=== PATIENT | male | born 1955 | race Caucasian/White ===

== ENCOUNTER → 2017-03-04 | Outpatient (CLI) | payer BC ==
[~2017-03-04] MED LIST: ASPEC81 PO; EZET10TA41 PO; METO50TA16 PO; MULT-506 PO; PRLSR20 PO
--- NOTE | 2017-03-04 12:14 | DIAGNOSTIC IMAGING REPORT ---
CT SINUSES WITH BRAIN LAB CT DOSE: 297.29 mGycm CLINICAL HISTORY: Chronic sinusitis. TECHNIQUE: Axial images of the sinuses were obtained without IV contrast. Coronal reformats were viewed. COMPARISON STUDY: None. FINDINGS: Visualized portions of the intracranial contents are unremarkable on this unenhanced examination. Mastoid air cells are clear. There is no fluid within the middle ears and the ossicles are intact. There are postsurgical findings suggestive of partial ethmoidectomies. The ostiomeatal complexes are patent. There is moderate leftward deviation of the nasal septum. Note is made of a suspected mucous retention cyst within the right maxillary sinus. There is mild mucosal thickening of the ethmoid sinuses. There are postsurgical findings involving the anterior cheney of the frontal sinuses. The frontal sinuses are largely opacified and contains hyperdense expansile lesions which measure up to 1.8 cm. There is significant thinning of the posterior cheney of the bilateral frontal sinuses. No definite intracranial extension is identified although would be difficult to exclude on this examination. IMPRESSION: 1. Postsurgical findings involving the anterior cheney of the frontal sinuses. Largely opacified frontal sinuses which contain several expansile hyperdense lesions. While nonspecific, mucoceles are favored. Marked thinning of the posterior cheney of the frontal sinuses. No definite intracranial extension although this be difficult to exclude on this exam. 2. Postsurgical findings suggestive of partial ethmoidectomies. 3. Moderate leftward deviation of the nasal septum. 4. Mild mucosal thickening of the ethmoid sinuses with a right maxilla sinus mucous retention cyst. Electronically signed by: Saman Pablo M.D. 03/04/2017 12:12 PM Dictated Date/Time: 03/04/2017 12:04 PM
== END | disposition home or self-care (01) ==
LOC: C.CTS 11:03
PROVIDERS: ATTEND Otolaryngology
DX: J32.9 Chronic sinusitis, unspecified (principal)